=== PATIENT | female | born 1945 | race African-American/Black ===

== ENCOUNTER 2022-08-26 23:05 | Inpatient (IN) | payer MEDICARE, OTHER ==
[~2022-08-26] VITALS: Ht 170.2 cm; Wt 70.8 kg
--- NOTE | 2022-08-26 23:08 | NUR ---
Pt refused poviding urine sample. She stated that if it's needed, she will gve one tomrrow.
[2022-08-26] MEDS ORDERED: FERR325T28 PO (23:35)
[2022-08-26] MEDS ORDERED: ACET-2154 PO (23:35)
--- NOTE | 2022-08-26 23:37 | NUR ---
Report given to RENETTA Baxter.
--- NOTE | 2022-08-27 00:20 | NUR ---
Pt. admitted to [facility], under care of Dr. Galan/Dr. Weaver Belongs List completed RENETTA Baxter aware of pt's arrival to unit.
[2022-08-27] MEDS ORDERED: ACETAMINOPHEN 325 MG TABLET PO PRN (00:45)
[2022-08-27] MEDS ORDERED: TEMAZEPAM 7.5 MG CAPSULE PO PRN (00:45)
[2022-08-27] MEDS ORDERED: MAG HYDROX/AL HYDROX/SIMETH 30 ML LIQUID UDC PO PRN (00:45)
[2022-08-27] MEDS ORDERED: MAGNESIUM HYDROXIDE 30 ML LIQUID UDC PO PRN (00:45)
[2022-08-27] MEDS ORDERED: PERM60CR4 TP (01:08)
--- NOTE | 2022-08-27 01:39 | NUR ---
GPS ADMISSION NOTE; Patient is a 76 year old female, brought to the ED from [facility], on a 5150 for GD. Per hold , this patient was found wondering the streets, delusional, bizarre behavior and unable to plan for self care, [place] [facility] or food. Upon face to face evaluation , the patient is pleasantly confused. A poor historian, no insight to her problems and minimizes the clear issues with skin integrity. The records from [facility] state this patient has been being treated for body lice. The right index finger has a laceration ,which the patient is unable verbalize how she obtained it. No next of kin identified and the patient appears to be homeless. A Patients Rights Handbook and The Patient Advisement were provided. A shower was given and the patient was oriented to the unit and plan of care. Safety Stratiges are in place. This patient denies SI and HI , is calm and responds well to redirection. Continuing to monitor patient for compliance and delusional thoughts. No acute distress at this time.
[2022-08-27 03:50] VITALS: BP 163/79
--- NOTE | 2022-08-27 06:09 | NUR ---
GPS: Pt.slept 3.30 last night. Confused,disorganized but re-directable. No increased agitation noted. Safe environment provided. Needs attended. Will continue to monitor.
[2022-08-27 07:30] VITALS: BP 158/69
[2022-08-27 07:46] LABS: HEMATOCRIT 27.2 % (31.2-41.9); MEAN CORPUSCULAR HEMOGLOBIN 26.7 uug (24.7-32.8); PLATELET COUNT (AUTO) 160 K/uL (179-408)
[2022-08-27 08:11] LABS: ALANINE AMINOTRANSFERASE 31 U/L (14-59); ALKALINE PHOSPHATASE 131 U/L (50-136); ASPARTATE AMINOTRANSFERASE 25 U/L (15-37); BILIRUBIN,TOTAL 0.5 mg/dL (0.2-1.0); CARBON DIOXIDE 27 mmol/L (21-32); CHLORIDE 108 mmol/L (98-107); CREATININE 1.4 mg/dL (0.6-1.3); GLUCOSE 97 mg/dL (74-106); POTASSIUM 3.9 mmol/L (3.5-5.1); TOTAL PROTEIN, SERUM 6.2 g/dL (6.4-8.2); UREA NITROGEN, BLOOD 23 mg/dL (7-18)
--- NOTE | 2022-08-27 12:24 | NUR ---
LOGAN Initial Discharge Note: Per hold, pt is currently homeless. Pt states she has a home in [place]. However, per hold, pt is homeless and pt is not able to provide details of her home. SW will continue to locate if pt has any family contact. LOGAN will continue to work with pt, family and MD to ensure a safe and proper discharge plan.
--- NOTE | 2022-08-27 12:30 | NUR ---
Firearms Report: Events Traffic Controller completed and submitted a [employer] firearms report for 5150 grave disability certifications. A copy of report has been placed in patient chart.
--- NOTE | 2022-08-27 12:30 | NUR ---
SW Family Contact: Pt does not appear to have any family contact at this time.
[2022-08-27 16:00] VITALS: BP 143/67
--- NOTE | 2022-08-27 16:06 | NUR ---
Gps/Stonehand- Was able to groomed self after set up, provided good hygiene. Patient has difficulty finding her room, wanders around , needing redirection from time to time. Informed [place] NP regarding patient received tx of elimite cream at [facility].
[2022-08-27] MEDS: FERROUS SULFATE 325 MG TABEC PO SCH (17:38)
[2022-08-27] MEDS: ASCORBIC ACID 500 MG TABLET PO SCH (17:38)
[2022-08-27 20:06] VITALS: BP 133/52
[2022-08-27] MEDS: OLANZAPINE ZYDIS 5 MG TAB.RAPDIS PO SCH (20:16)
--- NOTE | 2022-08-28 06:31 | NUR ---
GPS: Pt.slept 9 hrs last night. Remains paranoid,suspicious and has disorganized/circumstantial thoughts. Re-assured prn. Explained importance of taking meds.as ordered. Denies any pain nor any form of discomfort at this time.
[2022-08-28 07:55] VITALS: BP 131/72
[2022-08-28] MEDS: FERROUS SULFATE 325 MG TABEC PO SCH ×2 (08:37→16:25)
[2022-08-28] MEDS: ASCORBIC ACID 500 MG TABLET PO SCH ×2 (08:37→16:25)
[2022-08-28 16:17] VITALS: BP 133/68
--- NOTE | 2022-08-28 16:51 | NUR ---
GPS: Nursing Notes: Thought Disorder: Patient is awake and responding to her name, isolative and withdrawn in her room, A/Ox2, compliant with her medications, resistant with nursing care, refusing to participate in therapeutic groups, guarded, paranoid behavior, forgetful at times, believes that she did not eat her breakfast, but she ate at least 75% of her breakfast tray, no interactions with peers, unable to formulate a viable plan for self care, unkempt appearance, poor grooming, continue to monitor for safety, continue with treatment plan.
--- NOTE | 2022-08-28 20:30 | NUR ---
received patient in her room in bed. she is noted awake A/O x 2. she is noted pleasant upon approached. she is noted with poor insight and judgment as to the reason for her admission to [facility]HU. patient stated, "I have a home in [place]. is a big home. my was a band singer, but he passed". according to the records, patient is homeless. patient noted with grandiose delusional thinking. patient is able to comply with medication regiment diet and care. she is reassured for her safety. safety and fall precautions are in place. she was given PO Fluids and snacks. Her V/S are stable. will continue t6o monitor.
[2022-08-28] MEDS: OLANZAPINE ZYDIS 5 MG TAB.RAPDIS PO SCH (20:37)
[2022-08-29 08:08] LABS: MEAN CORPUSCULAR HEMOGLOBIN 26.8 uug (24.7-32.8); MEAN CORPUSCULAR VOLUME 84.1 fL (75.5-95.3); PLATELET COUNT (AUTO) 166 K/uL (179-408)
[2022-08-29 08:11] VITALS: BP 131/62
[2022-08-29] MEDS: FERROUS SULFATE 325 MG TABEC PO SCH ×2 (08:33→16:10)
[2022-08-29] MEDS: ASCORBIC ACID 500 MG TABLET PO SCH ×2 (08:33→16:10)
[2022-08-29 08:40] LABS: BILIRUBIN,TOTAL 0.5 mg/dL (0.2-1.0); CREATININE 1.3 mg/dL (0.6-1.3); MAGNESIUM 2.1 mg/dL (1.8-2.4); PHOSPHOROUS 3.3 mg/dL (2.5-4.9); POTASSIUM 4.2 mmol/L (3.5-5.1); TOTAL PROTEIN, SERUM 6.5 g/dL (6.4-8.2)
[2022-08-29] MEDS: MUPIROCIN 2% OINT 22 GM TUBE TP SCH ×2 (14:05→20:36)
--- NOTE | 2022-08-29 14:39 | NUR ---
GPS: Nursing Notes: Thought Disorder: Patient is awake and responding to her name, A/Ox2, no interactions with peers, grandiose, stated "My is a salt washer..", "We have money... We have a mansion in [facility] impaired judgment, poor insight, redirected during shift, refusing to participate in therapeutic groups, isolative and withdrawn in her room, stated "Mosquitos from [place] bite me...", poor grooming, unkempt appearance, continue to monitor for safety, continue with treatment plan.
[2022-08-29 16:09] VITALS: BP 134/68
[2022-08-29 20:02] VITALS: BP 145/56
[2022-08-29] MEDS: OLANZAPINE ZYDIS 5 MG TAB.RAPDIS PO SCH (20:37)
--- NOTE | 2022-08-29 21:37 | NUR ---
Received patient in her room in bed. she is noted awake A/O x 2. she is calm and pleasant upon approached. she is noted with bright affect, mood is labile.she is noted with poor insight and judgment as to the reason for her admission to MHU. she is noted with grandiose delusional thinking. patient stated, "I know many rich people. i am very rich. maybe you can work for us". according to the records, patient is homeless and there is no family contacts at this time. patient is able to comply with medication regiment diet and care. she is reassured for her safety. safety and fall precautions are in place. she was given PO Fluids and snacks. Her V/S are stable. Abrasion/cut on her index finger posterior distal aspect that was present on admission was cleaned with NS and was applied mupirocin and covered with non-adherent bandage. Patient stated, I fell and my finger went through a furniture and a cut it before coming here. no s/s of infection noted at this time. pt denied pain or discomfort. will continue to monitor.
[2022-08-30 07:48] VITALS: BP 113/62
[2022-08-30] MEDS: FERROUS SULFATE 325 MG TABEC PO SCH ×2 (08:24→16:32)
[2022-08-30] MEDS: ASCORBIC ACID 500 MG TABLET PO SCH ×2 (08:25→16:32)
[2022-08-30] MEDS: MUPIROCIN 2% OINT 22 GM TUBE TP SCH ×2 (08:26→20:37)
--- NOTE | 2022-08-30 15:08 | NUR ---
GPS: Nursing Notes: Thought Disorder: Patient is awake and responding to her name, impaired judgment, poor insight, gets easily irritable when redirected, refusing to participate in therapeutic groups, no interactions with peers, confused at times, getting into other patient's bed, grandiose, stated "Me and my have a lot of money, maybe you can work for me..." Unable to formulate a viable plan for self care, continue to monitor for safety, continue with treatment plan.
[2022-08-30 16:36] VITALS: BP 125/53
[2022-08-30 18:55] LABS: *OCCULT BLOOD STOOL NEGATIVE (NEGATIVE)
[2022-08-30 19:47] VITALS: BP 116/66
[2022-08-30] MEDS: OLANZAPINE ZYDIS 5 MG TAB.RAPDIS PO SCH (20:37)
[2022-08-31 07:49] LABS: MEAN CORPUSCULAR HEMOGLOBIN 26.6 uug (24.7-32.8); MEAN CORPUSCULAR VOLUME 84.6 fL (75.5-95.3); PLATELET COUNT (AUTO) 176 K/uL (179-408)
[2022-08-31 08:03] VITALS: BP 118/67
[2022-08-31 08:06] LABS: A/G RATIO 0.7 (0.7-1.7); ALBUMIN 2.3 g/dL (2.9-4.4); ALPHA-1-GLOBULIN 0.3 g/dL (0.0-0.4); ALPHA-2-GLOBULIN 0.9 g/dL (0.4-1.0); GAMMA GLOBULIN 1.2 g/dL (0.4-1.8); GLOBULIN, TOTAL 3.4 g/dL (2.2-3.9); M-SPIKE Not Observed g/dL (Not Observed)
[2022-08-31] MEDS: ASCORBIC ACID 500 MG TABLET PO SCH ×2 (08:35→17:08)
[2022-08-31] MEDS: FERROUS SULFATE 325 MG TABEC PO SCH ×2 (08:35→17:08)
[2022-08-31] MEDS: MUPIROCIN 2% OINT 22 GM TUBE TP SCH ×2 (08:36→20:13)
--- NOTE | 2022-08-31 15:28 | NUR ---
GPS: Nursing Notes: Thought Disorder: Patient is awake and responding to her name, isolative and withdrawn in her room, refusing to participate in therapeutic group, able to go to bathroom by self, but this afternoon urinated on her bed, simona, stated "I have a lot of money...You can work for me..", "My is a intermediate designer..", unable to formulate a viable plan for self care, resistant with nursing care, poor grooming, unkempt appearance, continue to monitor for safety, continue with treatment plan.
[2022-08-31 15:57] VITALS: BP 99/55
[2022-08-31 19:54] VITALS: BP 99/53
[2022-08-31] MEDS: OLANZAPINE ZYDIS 5 MG TAB.RAPDIS PO SCH (20:12)
--- NOTE | 2022-09-01 05:51 | NUR ---
This patient has been in her room the entire shift despite encouragement to interact with peers. The patient is talkative, sings , has a overly bright affect but is pleasant . This manual writer noticed the patient responding to internal stimuli. When trying to have a reality based ,meaningful conversation with this patient, it was impossible d/t constant tangental, grandiose and delusional thoughts. Safety Stratiges are in place. No acute issues with behavior at this time.
[2022-09-01 07:43] VITALS: BP 136/66
[2022-09-01] MEDS: FERROUS SULFATE 325 MG TABEC PO SCH ×2 (09:17→17:00)
[2022-09-01] MEDS: GLUCERNA SHAKE 237 ML CAN PO SCH (09:17)
[2022-09-01] MEDS: ASCORBIC ACID 500 MG TABLET PO SCH ×2 (09:17→17:00)
[2022-09-01] MEDS: MUPIROCIN 2% OINT 22 GM TUBE TP SCH ×2 (09:18→20:10)
--- NOTE | 2022-09-01 09:56 | NUR ---
[facility] hearing completed. 14 day hold stands under criteria of GD.
[2022-09-01 15:07] VITALS: BP 117/52
[2022-09-01] MEDS: OLANZAPINE ZYDIS 5 MG TAB.RAPDIS PO SCH (20:21)
[2022-09-01 20:42] VITALS: BP 147/69
--- NOTE | 2022-09-01 21:31 | NUR ---
GPS: Remains confused,disorganized and tangential. Poor insight to present situation. Med.compliant. Safety emphasized. Re-directed and re-assured prn. Will continue to monitor.
[2022-09-02 07:30] VITALS: BP 121/56
[2022-09-02] MEDS: FERROUS SULFATE 325 MG TABEC PO SCH ×2 (08:39→16:44)
[2022-09-02] MEDS: ASCORBIC ACID 500 MG TABLET PO SCH ×2 (08:40→16:45)
[2022-09-02] MEDS: GLUCERNA SHAKE 237 ML CAN PO SCH (08:40)
[2022-09-02] MEDS: MUPIROCIN 2% OINT 22 GM TUBE TP SCH ×2 (10:29→20:14)
--- NOTE | 2022-09-02 12:35 | NUR ---
Nursing Stayed in her room most of the morning, encouraged to participate in her group therapy. Had been compliant with her routine meds, cooperative with the staff
[2022-09-02 16:00] VITALS: BP 105/60
[2022-09-02] MEDS: OLANZAPINE ZYDIS 5 MG TAB.RAPDIS PO SCH (20:13)
[2022-09-02 20:35] VITALS: BP 158/68
--- NOTE | 2022-09-02 22:25 | NUR ---
GPS: Observed pt.to be talking to self and with episodes of laughing inappropriately. Re-directed prn. Remains disorganized,non-sensical with poor insight to present situation. Sleeping pill was offered several times by staff but pt.refused despite explanation of risks vs benefits x3. Quiet and safe environment provided. Will continue to monitor.
[2022-09-03 07:30] VITALS: BP 109/53
[2022-09-03] MEDS: FERROUS SULFATE 325 MG TABEC PO SCH ×2 (08:48→16:14)
[2022-09-03] MEDS: ASCORBIC ACID 500 MG TABLET PO SCH ×2 (08:49→16:14)
[2022-09-03] MEDS: GLUCERNA SHAKE 237 ML CAN PO SCH (08:49)
[2022-09-03] MEDS: MUPIROCIN 2% OINT 22 GM TUBE TP SCH ×2 (08:53→21:01)
--- NOTE | 2022-09-03 14:05 | NUR ---
SW Discharge Update: Pt is accepted to [place] [facility] [id number] ([phone]) per Katherine waldron upon discharge.
[2022-09-03 16:00] VITALS: BP 120/59
[2022-09-03 20:29] VITALS: BP 117/60
[2022-09-03] MEDS: OLANZAPINE ZYDIS 5 MG TAB.RAPDIS PO SCH (21:01)
--- NOTE | 2022-09-04 05:05 | NUR ---
Report received at 1915, patient is very delusional, she is stable but do not interact with others. She stayed in her room for the entire shift. I went to her room brought her meds she took them after convincing that I already give them the meds. Patient is very delusional. However, she is stable and do not cause or show any disruptive behavior. Will continue to monitor patient for safety.
[2022-09-04 08:01] VITALS: BP 103/55
[2022-09-04] MEDS: FERROUS SULFATE 325 MG TABEC PO SCH ×2 (08:49→16:25)
[2022-09-04] MEDS: ASCORBIC ACID 500 MG TABLET PO SCH ×2 (08:50→16:25)
[2022-09-04] MEDS: GLUCERNA SHAKE 237 ML CAN PO SCH (08:51)
[2022-09-04] MEDS: MUPIROCIN 2% OINT 22 GM TUBE TP SCH ×2 (08:57→20:32)
--- NOTE | 2022-09-04 14:31 | NUR ---
Nursing- Stayed in bed most of the morning, encouraged participating in her group activity . Smiles and interacts fairly well with the staff .Forgetful, scabs left index finger , top. abx applied as ordered, bandaid applied.
[2022-09-04 16:06] VITALS: BP 131/97
[2022-09-04 19:57] VITALS: BP 107/97
[2022-09-04] MEDS: MIRTAZAPINE 15 MG TABLET PO SCH (20:32)
[2022-09-04] MEDS: OLANZAPINE ZYDIS 5 MG TAB.RAPDIS PO SCH (20:32)
--- NOTE | 2022-09-05 04:36 | NUR ---
Received patient in her room. Awake, pleasant and delusional. This copy writer noticed that the patient was not swallowing her medications, and found multiple pills in the sheets of her bed. It has also been difficult to engage in any reality based or insightful conversation with the patient because she would start singing during the exchange and had flight of ideas continuously. Redirection has been difficult. No aggressive behavior noted. Safety Stratiges in place. Continuing to monitor her medication compliance.
[2022-09-05] MEDS: ASCORBIC ACID 500 MG TABLET PO SCH ×2 (08:44→16:41)
[2022-09-05] MEDS: FERROUS SULFATE 325 MG TABEC PO SCH ×2 (08:44→16:41)
[2022-09-05] MEDS: MUPIROCIN 2% OINT 22 GM TUBE TP SCH ×2 (08:45→20:33)
[2022-09-05] MEDS: GLUCERNA SHAKE 237 ML CAN PO SCH (08:45)
[2022-09-05 08:56] VITALS: BP 109/46
[2022-09-05 15:17] VITALS: BP 100/54
--- NOTE | 2022-09-05 16:03 | NUR ---
Nursing- Patient had been compliant with routine medications, no cheeking noted, checked compliance . Adequate fluid intake . Stayed in the activity room during the day .
[2022-09-05 20:30] VITALS: BP 106/62
[2022-09-05] MEDS: MIRTAZAPINE 15 MG TABLET PO SCH (20:32)
[2022-09-05] MEDS: OLANZAPINE ZYDIS 5 MG TAB.RAPDIS PO SCH (20:33)
[2022-09-05] MEDS: CLONAZEPAM 0.5 MG TABLET PO PRN (22:43)
--- NOTE | 2022-09-06 02:14 | NUR ---
Patient is disorganized, tangental and is unable to follow simple directions or answer even simple questions without reiteration and repetitiveness from this sheet writer. Patient spit out medication that was requested and has been resisting routine HS medications to the point of letting them fall to the floor. Close monitoring of the patient is required , when medications are offered. The patient was incontinent of urine in the bed and was responding to internal stimuli loudly during the shift to the point of disrupting the other patients. Despite frequent reminders, this patient would continue to close the door to her room. There has been no aggression or hostility noted, only paranoia and ongoing delusions. Confusion about where she is, what is the reality and importance of compliance, along with the inability to verbalize future stratiges when discharged.
[2022-09-06 07:40] VITALS: BP 132/70
[2022-09-06] MEDS: ASCORBIC ACID 500 MG TABLET PO SCH ×2 (08:31→16:33)
[2022-09-06] MEDS: FERROUS SULFATE 325 MG TABEC PO SCH ×2 (08:31→16:33)
[2022-09-06] MEDS: GLUCERNA SHAKE 237 ML CAN PO SCH (08:31)
[2022-09-06] MEDS: MUPIROCIN 2% OINT 22 GM TUBE TP SCH ×2 (08:32→21:51)
--- NOTE | 2022-09-06 15:33 | NUR ---
GPS: Nursing Notes: Thought Disorder: Patient is awake and responding to her name, impaired judgment, poor insight, needs prompting to participate in therapeutic groups, came out her room, interactive with peers, believes that she is her to help them, believes that she got bitten by [place] mosquitos at her friend house in [place], unable to formulate a viable plan for self care, poor grooming, refusing to shower, continue to monitor for safety, continue with treatment plan.
[2022-09-06 16:00] VITALS: BP 122/68
[2022-09-06 20:11] VITALS: BP 108/48
[2022-09-06] MEDS: MIRTAZAPINE 15 MG TABLET PO SCH (21:51)
[2022-09-06] MEDS: OLANZAPINE ZYDIS 5 MG TAB.RAPDIS PO SCH (21:51)
[2022-09-06] MEDS: CLONAZEPAM 0.5 MG TABLET PO PRN (21:57)
[2022-09-07 07:55] VITALS: BP 124/56
[2022-09-07] MEDS: FERROUS SULFATE 325 MG TABEC PO SCH ×2 (08:38→16:29)
[2022-09-07] MEDS: GLUCERNA SHAKE 237 ML CAN PO SCH (08:38)
[2022-09-07] MEDS: MUPIROCIN 2% OINT 22 GM TUBE TP SCH ×2 (08:39→21:07)
[2022-09-07] MEDS: ASCORBIC ACID 500 MG TABLET PO SCH ×2 (08:39→16:29)
--- NOTE | 2022-09-07 13:44 | NUR ---
GPS: Nursing Notes: Thought Disorder: Patient is awake and responding to her name, isolative and withdrawn, refusing to participate in therapeutic groups, unable to formulate a viable plan for self care, poor grooming, unkempt appearance, resistant with nursing care, stated "I called my friend to invite you to her green party..", gets easily irritable when redirected, A/Ox2, continue to monitor for safety, continue with treatment plan.
[2022-09-07 15:11] VITALS: BP 98/53
[2022-09-07 20:00] VITALS: BP 104/47
[2022-09-07] MEDS: MIRTAZAPINE 15 MG TABLET PO SCH (21:07)
[2022-09-07] MEDS: OLANZAPINE ZYDIS 5 MG TAB.RAPDIS PO SCH (21:07)
[2022-09-07 21:35] VITALS: BP 104/47
--- NOTE | 2022-09-07 22:30 | NUR ---
Received patient in her room in bed. she is A/O x 2. she was initially noted calm and cooperative upon approached, she took all her PO QHS schedule medications, had PO fluids and snacks and her VS are stable. But after 2200 she started having visual hallucination and sun-downing. she started seen spiders in the ceiling. she stated, "Look! there is. i am scare to spiders because i was bitten by one. call the standard machine stitcher. then she started pacing the hallway. she also requested "I want to sleep in another room". patient was told there is no other room available. patient was reassured that what she was seen in the ceiling was in fact a small wired and that there was no spiders. she was also offered Klonopine PO PRN but she refused. Pt needs redirection, and constant reality orientations. Pt is reassured for her safety. safety and fall precautions are in place. will continue to monitor behavior.
[2022-09-08 07:55] VITALS: BP 155/87
[2022-09-08] MEDS: FERROUS SULFATE 325 MG TABEC PO SCH (09:52)
[2022-09-08] MEDS: ASCORBIC ACID 500 MG TABLET PO SCH (09:53)
[2022-09-08] MEDS: GLUCERNA SHAKE 237 ML CAN PO SCH (09:53)
--- NOTE | 2022-09-08 13:00 | NUR ---
Received Pt in room sleeping .Pt is A/O x2 Confused and delusional at times .Pt stated "I see a spider on the wall and is one of the most venomous there is". Pt is ambulatory self care and needs minimal assistance with ADLs. Pt is compliant with her medications. Continue to monitor for safety , Continue with treatment plan.
--- NOTE | 2022-09-08 14:30 | NUR ---
Received orders to discharge pt to [facility] located at [address] [place] [address], [id number] ([phone]) Via [facility] transportation at 1400 PM. Pt denies SI/HI, AH/VH, SOB and Pain. All valuables and belongings were returned to the pt. Pt left the Unit At 14:30 PM.Reassurance and emotional support provided. Fall precautions implemented. No acute distress noted
--- NOTE | 2022-09-08 15:40 | NUR ---
Pt is being discharged to [facility] via ambulance. Pt is awake, cooperative, willing to go. No family to notify. VS are stable. All belongings returned.
== END 2022-09-08 14:30 | DRG 885 ==
LOC: ER 23:05 → GPS 23:30
PROVIDERS: ADMIT Psychiatry & Neurology Psychiatry; ATTEND Nurse Practitioner Family
DX: F29 Unspecified psychosis not due to a substance or known physiological condition (principal); N17.0 Acute kidney failure with tubular necrosis; N18.9 Chronic kidney disease, unspecified; E44.0 Moderate protein-calorie malnutrition; G93.40 Encephalopathy, unspecified; I10 Essential (primary) hypertension; R73.03 Prediabetes; G47.00 Insomnia, unspecified; E88.09 Other disorders of plasma-protein metabolism, not elsewhere classified; Z68.24 Body mass index [BMI] 24.0-24.9, adult; I12.9 Hypertensive chronic kidney disease with stage 1 through stage 4 chronic kidney disease, or unspecified chronic kidney disease; Z20.822 Contact with and (suspected) exposure to COVID-19; D50.9 Iron deficiency anemia, unspecified; Z59.00 Homelessness unspecified
CPT/HCPCS: 36415; 71045; 83550; 83735; 83970; 84100; 84155; 84165; 85025; A4663